=== PATIENT | female | born 1970 | race African-American/Black ===

== ENCOUNTER 2016-04-17 22:35 | Inpatient (IN) | payer BC ==
[~2016-04-17] VITALS: Ht 157.5 cm; Wt 77.1 kg
[2016-04-17] MEDS ORDERED: NKM (22:57)
[2016-04-17 23:15] VITALS: BP 158/89
[2016-04-17] MEDS ORDERED: Morphine Sulfate 4mg/ml Inj IVP ONE (23:30)
[2016-04-18] VITALS (8 sets, daily range): BP systolic 117–150; BP diastolic 62–87
--- NOTE | 2016-04-18 00:38 | Emergency Room Report ---
History of Present Illness General Chief Complaint: Chest Pain Source: Patient Present Illness HPI Patient presents essentially complaining mainly of the left arm pain and tingling Ongoing for the past 2 days Patient felt a sharp pain just below shoulder area on the left arm Radiation down into the hand Denies any fall or trauma Denies any neck pain Doesn't associate exertion or position with the discomfort Rates the pain as 3/10 Patient felt that she had some upper chest discomfort when his symptoms came on Denies any recent travel she also reports that while she was here checking in she developed a mild headache fairly diffuse Allergies: Coded Allergies: No Known Allergies (Unverified , 04/17/16) Patient History Past Medical History: see triage record Pertinent Family History: none Last Menstrual Period: 04/03/16 Now: No Reviewed Nursing Documentation: PMH: Agreed, PSxH: Agreed Nursing Documentation-PMH Past Medical History: No History, Except For Review of Systems All Other Systems: negative except mentioned in HPI Physical Exam Vital Signs Date Time Temp Pulse Resp B/P Pulse Ox O2 Delivery O2 Flow Rate FiO2 04/17/16 22:51 98.2 80 16 162/90 98 Room Air Sp02 EP Interpretation: reviewed, normal General Appearance: well appearing, no apparent distress Head: normocephalic, atraumatic Eyes: bilateral eye EOMI, bilateral eye PERRL ENT: hearing grossly normal, normal pharynx, TMs + canals normal, uvula midline Neck: full range of motion, supple, no meningismus, no bony tend Respiratory: lungs clear, normal breath sounds, no rhonchi, no respiratory distress, no retraction, no accessory muscle use Cardiovascular #1: normal peripheral pulses, regular rate, rhythm, no edema, no gallop, no JVD, no murmur Gastrointestinal: normal bowel sounds, non tender, soft, no mass, no organomegaly, non-distended, no guarding, no hernia, no pulsatile mass, no rebound Genitourinary: no CVA tenderness Musculoskeletal: normal inspection - No obvious swelling to the left upper arm , neurovascularly intact good pulses distally approximately, the hand feels appropriate Neurologic: oriented x3, responsive, fws faculty assistant III-XII nml as tested, motor strength/ tone normal, sensory intact Psychiatric: mood/affect normal Skin: normal color, no rash, warm/dry, palpation normal Lymphatic: normal inspection, no adenopathy Medical Decision Making Diagnostic Impression: Primary Impression: ACS (acute coronary syndrome) Additional Impression: Lung nodule ER Course Patient is a fairly complex patient with multiple differential to consideration including but not limited to cardiac cardiopulmonary and vascular emergencies Patient's d-dimer did come back elevated Patient required CT chest for rule out of pulmonary embolism Given the chest pain and some any shortness of breath that she complained about afterwards Patient has done better throughout her stay was also given Lovenox prior to further workup And admitted for further care Labs Test 04/18/16 01:20 04/18/16 03:45 White Blood Count 7.4 K/UL (4.8-10.8) Red Blood Count 4.41 M/UL (4.20-5.40) Hemoglobin 8.0 G/DL (12.0-16.0) Hematocrit 28.7 % (37.0-47.0) Mean Corpuscular Volume 65 FL (80-99) Mean Corpuscular Hemoglobin 18.1 PG (27.0-31.0) Mean Corpuscular Hemoglobin Concent 27.9 G/DL (32.0-36.0) Red Cell Distribution Width 17.9 % (11.6-14.8) Platelet Count 398 K/UL (150-450) Mean Platelet Volume 7.0 FL (6.5-10.1) Neutrophils (%) (Auto) 53.6 % (45.0-75.0) Lymphocytes (%) (Auto) 36.0 % (20.0-45.0) Monocytes (%) (Auto) 6.3 % (1.0-10.0) Eosinophils (%) (Auto) 2.8 % (0.0-3.0) Basophils (%) (Auto) 1.4 % (0.0-2.0) D-Dimer 898 ng/mL (<500) Sodium Level 141 mEQ/L (135-145) Potassium Level 3.5 mEQ/L (3.4-4.9) Chloride Level 103 mEQ/L (98-107) Carbon Dioxide Level 22 mEQ/L (20-30) Anion Gap 16 (5-15) Blood Urea Nitrogen 10 mg/dL (7-23) Creatinine 0.7 mg/dL (0.5-0.9) Estimat Glomerular Filtration Rate > 60 mL/min (>60) Glucose Level 105 mg/dL (74-106) Calcium Level 8.9 mg/dL (8.6-10.2) Total Bilirubin < 0.2 mg/dL (0.0-1.2) Aspartate Amino Transf (AST/SGOT) 17 U/L (5-40) Alanine Aminotransferase (ALT/SGPT) 12 U/L (3-33) Alkaline Phosphatase 62 U/L (35-104) Total Creatine Kinase 66 U/L (26-140) Creatine Kinase MB < 1.5 ng/mL (< 3.8) Creatine Kinase MB Relative Index Troponin I < 0.30 ng/mL (<=0.30) Pro-B-Type Natriuretic Peptide 34 pg/mL (0-125) Total Protein 7.4 g/dL (6.6-8.7) Albumin 4.1 g/dL (3.5-5.2) Globulin 3.3 g/dL Albumin/Globulin Ratio 1.2 (1.0-2.7) Prothrombin Time 10.1 SEC (9.30-11.50) Prothromb Time International Ratio 1.0 (0.9-1.1) Activated Partial Thromboplast Time 24 SEC (23-33) EKG Diagnostic Results Rate: normal Rhythm: NSR ST Segments: no acute changes Rhythm Strip Diag. Results EP Interpretation: yes Rate: 77 Rhythm: NSR, no PVC's, no ectopy Chest X-Ray Diagnostic Results EP Interpretation: Yes Findings: no consolidation, no effusion, no pneumothorax Number of Views: 1 CT/MRI/US Diagnostic Results CT/MRI/US Diagnostic Results : Impression CT chest:No evidence of pulmonary embolism there is a 5 mm left lower lobe followup recommended by radiology Last Vital Signs Date Time Temp Pulse Resp B/P Pulse Ox O2 Delivery O2 Flow Rate FiO2 04/17/16 22:51 98.2 80 16 162/90 98 Room Air Status: improved Disposition: ADMITTED INPATIENT Condition: Serious LAYLA PERAZA D.O. Apr 18, 2016 00:38
[2016-04-18] MEDS ORDERED: Morphine Sulfate 4mg/ml Inj IM ONE (01:15)
[2016-04-18 01:50] LABS: BASOPHILS % (AUTO) 1.4 % (0.0-2.0); EOSINOPHILS % (AUTO) 2.8 % (0.0-3.0); MEAN CORPUSCULAR HEMOGLOBIN 18.1 PG (27.0-31.0); MEAN CORPUSCULAR HGB CONC 27.9 G/DL (32.0-36.0); MEAN CORPUSCULAR VOLUME 65 FL (80-99); MONOCYTES % (AUTO) 6.3 % (1.0-10.0); NEUTROPHILS % (AUTO) 53.6 % (45.0-75.0); PLATELET COUNT 398 K/UL (150-450); RED BLOOD COUNT 4.41 M/UL (4.20-5.40); RED CELL DISTRIBUTION WIDTH 17.9 % (11.6-14.8); WHITE BLOOD COUNT 7.4 K/UL (4.8-10.8)
[2016-04-18 02:06] LABS: TROPONIN I < 0.30 ng/mL (<=0.30)
[2016-04-18 02:10] LABS: ALANINE AMINOTRANSFERASE 12 U/L (3-33); ALBUMIN/GLOBULIN RATIO 1.2 (1.0-2.7); ANION GAP 16 (5-15); ASPARTATE AMINO TRANSFERASE 17 U/L (5-40); CALCIUM 8.9 mg/dL (8.6-10.2); CARBON DIOXIDE 22 mEQ/L (20-30); CHLORIDE 103 mEQ/L (98-107); CREATININE 0.7 mg/dL (0.5-0.9); GLOMERULAR FILTRATION RATE > 60 mL/min (>60); HEMOLYSIS 11; POTASSIUM 3.5 mEQ/L (3.4-4.9); SODIUM 141 mEQ/L (135-145); TOTAL PROTEIN 7.4 g/dL (6.6-8.7)
[2016-04-18 02:20] LABS: CKMB < 1.5 ng/mL (< 3.8)
[2016-04-18] MEDS ORDERED: Enoxaparin 80mg Inj SUBQ SCH (02:30)
[2016-04-18 04:08] LABS: PROTHROMBIN TIME 10.1 SEC (9.30-11.50)
[2016-04-18] MEDS ORDERED: Morphine Sulfate 2mg/ml Inj IVP PRN (06:45)
[2016-04-18] MEDS ORDERED: DuoNeb 0.5-3(2.5)mg/3ml neb HHN PRN (06:45)
[2016-04-18] MEDS ORDERED: Miralax 17gm pkt ORAL PRN (06:45)
[2016-04-18] MEDS ORDERED: Enalaprilat 2.5mg/2ml Inj IV PRN (06:45)
[2016-04-18] MEDS ORDERED: Nitroglycerin Subl 0.4mg tab (Bottle Of 25) SL PRN (06:45)
[2016-04-18] MEDS ORDERED: Diltiazem 25mg/5ml IV PRN (06:45)
[2016-04-18] MEDS ORDERED: Ketorolac 30mg Inj IV PRN (06:45)
--- NOTE | 2016-04-18 08:42 | Cardiology Progress Note ---
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 [id number] Objective Last 24 Hour Vital Signs Date Time Temp Pulse Resp B/P Pulse Ox O2 Delivery O2 Flow Rate FiO2 04/18/16 07:47 97.7 62 18 120/73 99 Room Air 04/18/16 05:37 98.4 89 16 125/78 98 Room Air 04/18/16 05:30 98.4 89 16 125/78 98 Room Air 04/18/16 04:00 98.0 82 16 128/76 100 Room Air 04/18/16 02:48 98.3 04/18/16 02:30 97.8 81 16 139/81 99 Room Air 04/18/16 01:30 98.0 80 14 145/79 99 Room Air 04/18/16 00:30 98.0 78 16 150/85 100 Room Air 04/17/16 23:15 98.5 82 16 158/89 100 Room Air 04/17/16 23:15 82 14 Room Air 04/17/16 22:51 98.2 80 16 162/90 98 Room Air Intake and Output 04/17/16 04/18/16 19:00 07:00 Intake Total 500 ml Balance 500 ml IV Total 500 ml # Voids 2 Laboratory Tests Test 04/18/16 01:20 04/18/16 03:45 White Blood Count 7.4 K/UL (4.8-10.8) Red Blood Count 4.41 M/UL (4.20-5.40) Hemoglobin 8.0 G/DL (12.0-16.0) L Hematocrit 28.7 % (37.0-47.0) L Mean Corpuscular Volume 65 FL (80-99) L Mean Corpuscular Hemoglobin 18.1 PG (27.0-31.0) L Mean Corpuscular Hemoglobin Concent 27.9 G/DL (32.0-36.0) L Red Cell Distribution Width 17.9 % (11.6-14.8) H Platelet Count 398 K/UL (150-450) Mean Platelet Volume 7.0 FL (6.5-10.1) Neutrophils (%) (Auto) 53.6 % (45.0-75.0) Lymphocytes (%) (Auto) 36.0 % (20.0-45.0) Monocytes (%) (Auto) 6.3 % (1.0-10.0) Eosinophils (%) (Auto) 2.8 % (0.0-3.0) Basophils (%) (Auto) 1.4 % (0.0-2.0) D-Dimer 898 ng/mL (<500) H Sodium Level 141 mEQ/L (135-145) Potassium Level 3.5 mEQ/L (3.4-4.9) Chloride Level 103 mEQ/L (98-107) Carbon Dioxide Level 22 mEQ/L (20-30) Anion Gap 16 (5-15) H Blood Urea Nitrogen 10 mg/dL (7-23) Creatinine 0.7 mg/dL (0.5-0.9) Estimat Glomerular Filtration Rate > 60 mL/min (>60) Glucose Level 105 mg/dL (74-106) Calcium Level 8.9 mg/dL (8.6-10.2) Total Bilirubin < 0.2 mg/dL (0.0-1.2) Aspartate Amino Transf (AST/SGOT) 17 U/L (5-40) Alanine Aminotransferase (ALT/SGPT) 12 U/L (3-33) Alkaline Phosphatase 62 U/L (35-104) Total Creatine Kinase 66 U/L (26-140) Creatine Kinase MB < 1.5 ng/mL (< 3.8) Creatine Kinase MB Relative Index Troponin I < 0.30 ng/mL (<=0.30) Pro-B-Type Natriuretic Peptide 34 pg/mL (0-125) Total Protein 7.4 g/dL (6.6-8.7) Albumin 4.1 g/dL (3.5-5.2) Globulin 3.3 g/dL Albumin/Globulin Ratio 1.2 (1.0-2.7) Prothrombin Time 10.1 SEC (9.30-11.50) Prothromb Time International Ratio 1.0 (0.9-1.1) Activated Partial Thromboplast Time 24 SEC (23-33) NICO MACDONALD Apr 18, 2016 08:42
[2016-04-18] MEDS ORDERED: Aspirin Baby 81mg ORAL SCH (09:00)
[2016-04-18 09:38] LABS: PROTHROMBIN TIME 10.2 SEC (9.30-11.50)
--- NOTE | 2016-04-18 10:18 | Consultation ---
DATE OF CONSULTATION: 04/18/2016 CARDIOLOGY CONSULTATION: REFERRING PHYSICIAN: Milton Monzon M.D. REASON FOR REFERRAL: Left arm pain and chest pain. HISTORY OF PRESENT ILLNESS: This is a middle-aged female, who really has not had any significant medical problems. The patient presented to the hospital because of two days of intermittent pain in the left arm and subsequently constantly being present as of yesterday and she finally decided that she wanted to get that evaluated. She did have some tingling sensation in the left arm as well. she had a few minutes of pain in the left side of the lower chest rib area that lasted only a few minutes, but she has not had that pain or discomfort previously and nor has she had any more that pain since it resolved earlier after her drive her. She really does not have discomfort. There is no PND or orthopnea. She likes two to sleep with two to three pillows because of comfort night because of shortness of breath. There is no PND. She does notice that when she climbs upstairs that she gets some shortness of breath that has been the same for the past few months. Nothing new. She does not have any dizziness or lightheadedness on standing. No heart pounding or palpitations. PAST MEDICAL HISTORY: Negative for diabetes, negative for high blood pressure, negative for high cholesterol, negative for heart attack or cancer. No stroke or hepatitis. No tuberculosis. No asthma or emphysema. No ulcers. No kidney problems, liver problems, thyroid problems, anemia, or arthritis. She does have a history of ulcerative colitis, although she has not been treated for sometime. ALLERGIES: None. SOCIAL HISTORY: She does not smoke, does not drink alcoholic beverages, no drug use. REVIEW OF SYSTEMS: Gastrointestinal: She has had some blood bloody stools when she has a flare-up of her ulcerative colitis. Genitourinary: Negative. Pulmonary: Negative. Constitutional: Negative. Neurological system: Not mentioned in the history of present illness. There is no blurred vision or double vision. No spinning sensations or balance problems. No paralysis except for the tingling sensation and weakness and the pain in the left arm is otherwise unremarkable. PHYSICAL EXAMINATION: GENERAL: Shows to be middle-aged female, in no apparent respiratory distress. HEENT: Unremarkable. NECK: Supple. No jugular venous distention. No abdominojugular reflux noted. LUNGS: Clear to auscultation and percussion. CARDIAC: Regular rate and rhythm. No heaves. No thrills. No gallops. No rubs are noted. ABDOMEN: Soft and nontender. Positive bowel sounds. EXTREMITIES: No edema. She has a good pulses with the left upper extremity. LABORATORY VALUES AND DIAGNOSTIC DATA: Sodium 141, potassium 3.5, chloride 103, bicarbonate 22, BUN of 10, creatinine 0.7, and glucose of 105. Liver function tests appeared to be normal. Her troponin less than 0.3. ProBNP is only 34. Coags, INR of 1 and PTT of 24, and a D-dimer of 898. Her chest x-ray looks fairly unremarkable and I do not see any infiltrates or EKG basically shows sinus rhythm, rate of 67, no ST or T wave abnormalities. ASSESSMENT: 1. Left arm pain. 2. An episode of chest pain for a very short period of time. 3. History of ulcerative colitis. PLAN: Dr. Monzon, this patient was seen in cardiac consultation. The pain that she lasted two minutes according to herself. There was some tenderness in the chest wall area, which she experienced some pain last night, but the main issue has not been the pain in fact that her main issues are left arm weakness and pain and not the chest. She will have a series of tests including EKGs and serial enzymes, although I suspect this may be negative. I suspect that she may have to have some evaluation of her left arm pain further may be likely further imaging and she does have elevated D-dimer. She will have a venous duplex study of her upper extremity as well as lower extremities. Further recommendation depending on her double finding. Claudio Crenshaw M.D. DR: HEIDI JOB#: [id number] CC:
[2016-04-18 10:27] LABS: ERYTHROCYTE SEDIMENTATION RATE 61 MM/HR (0-20)
[2016-04-18 10:31] LABS: TROPONIN I < 0.30 ng/mL (<=0.30)
[2016-04-18] MEDS ORDERED: Heparin 5000 units/ml inj SUBQ SCH (11:00)
--- NOTE | 2016-04-18 11:04 | Diagnostic Imaging Report ---
Indication: Chest pain Technique: Single portable AP view of the chest. Findings: Comparison: None. The bones and extra pulmonary soft tissues, cardiomediastinal silhouette, pulmonary vasculature and parenchyma, and pleural surfaces are unremarkable. IMPRESSION: Negative portable AP chest.
[2016-04-18 11:06] LABS: ANISOCYTOSIS 1+; BAND NEUTROPHILS % (MANUAL) 0 % (0-8); BASOPHILS % (MANUAL) 0 % (0-2); EOSINOPHILS % (MANUAL) 2 % (0-3); HYPOCHROMASIA 1+; LYMPHOCYTES % (MANUAL) 37 % (20-45); MICROCYTES 2+; NEUTROPHILS % (MANUAL) 52 % (45-75); PLATELET ESTIMATE ADEQUATE; PLATELET MORPHOLOGY NORMAL; TOTAL CELLS COUNTED 100
[2016-04-18 11:08] LABS: POLYCHROMASIA OCCASIONAL
[2016-04-18 11:19] LABS: PATH BLOOD SMEAR/OMC SENT TO PATHOLOGIST
[2016-04-18 12:07] LABS: RETICULOCYTE COUNT 0.8 % (0.0-2.0)
--- NOTE | 2016-04-18 13:01 | History and Physical ---
History of Present Illness General Date patient seen: Apr 18, 2016 Reason for Hospitalization: Chest Pain Present Illness HPI 45 year old female without any PMHx presented complaining mainly of the left arm pain and tingling Ongoing for the past 2 days . She felt a sharp pain just below shoulder area on the left arm Radiation down into the hand. Denies any fall or trauma Denies any neck pain, She also felt that she had some upper chest discomfort. Allergies: Coded Allergies: No Known Allergies (Unverified , 04/17/16) Medication History Scheduled No Known Medications* (NKM - No Known Medications*), 0 ., (Reported) Patient History Healthcare decision maker Resuscitation status Full Code Advanced Directive on File Past Medical/Surgical History Past Medical/Surgical History: (1) Ulcerative colitis Review of Systems All Other Systems: negative except mentioned in HPI Physical Exam General Appearance: WD/WN Lines, tubes and drains: peripheral HEENT: normocephalic, atraumatic Neck: non-tender, normal alignment Respiratory/Chest: chest wall non-tender, lungs clear Cardiovascular/Chest: normal peripheral pulses, normal rate Abdomen: normal bowel sounds Genitourinary/Rectal: normal genital exam Extremities: normal range of motion Last 24 Hour Vital Signs Date Time Temp Pulse Resp B/P Pulse Ox O2 Delivery O2 Flow Rate FiO2 04/18/16 11:21 96.8 61 18 117/62 100 Room Air 04/18/16 08:00 72 04/18/16 07:47 97.7 62 18 120/73 99 Room Air 04/18/16 05:37 98.4 89 16 125/78 98 Room Air 04/18/16 05:30 98.4 89 16 125/78 98 Room Air 04/18/16 04:00 98.0 82 16 128/76 100 Room Air 04/18/16 02:48 98.3 04/18/16 02:30 97.8 81 16 139/81 99 Room Air 04/18/16 01:30 98.0 80 14 145/79 99 Room Air 04/18/16 00:30 98.0 78 16 150/85 100 Room Air 04/17/16 23:15 98.5 82 16 158/89 100 Room Air 04/17/16 23:15 82 14 Room Air 04/17/16 22:51 98.2 80 16 162/90 98 Room Air Intake and Output 04/17/16 04/18/16 19:00 07:00 Intake Total 500 ml Balance 500 ml IV Total 500 ml # Voids 2 Laboratory Tests Test 04/18/16 01:20 04/18/16 03:45 04/18/16 08:35 White Blood Count 7.4 K/UL (4.8-10.8) Red Blood Count 4.41 M/UL (4.20-5.40) Hemoglobin 8.0 G/DL (12.0-16.0) L Hematocrit 28.7 % (37.0-47.0) L Mean Corpuscular Volume 65 FL (80-99) L Mean Corpuscular Hemoglobin 18.1 PG (27.0-31.0) L Mean Corpuscular Hemoglobin Concent 27.9 G/DL (32.0-36.0) L Red Cell Distribution Width 17.9 % (11.6-14.8) H Platelet Count 398 K/UL (150-450) Mean Platelet Volume 7.0 FL (6.5-10.1) Neutrophils (%) (Auto) 53.6 % (45.0-75.0) Lymphocytes (%) (Auto) 36.0 % (20.0-45.0) Monocytes (%) (Auto) 6.3 % (1.0-10.0) Eosinophils (%) (Auto) 2.8 % (0.0-3.0) Basophils (%) (Auto) 1.4 % (0.0-2.0) Differential Total Cells Counted 100 Neutrophils % (Manual) 52 % (45-75) Lymphocytes % (Manual) 37 % (20-45) Monocytes % (Manual) 9 % (1-10) Eosinophils % (Manual) 2 % (0-3) Basophils % (Manual) 0 % (0-2) Band Neutrophils 0 % (0-8) Platelet Estimate Adequate Platelet Morphology Normal Polychromasia Occasional Hypochromasia 1+ Anisocytosis 1+ Microcytosis 2+ D-Dimer 898 ng/mL (<500) H Sodium Level 141 mEQ/L (135-145) Potassium Level 3.5 mEQ/L (3.4-4.9) Chloride Level 103 mEQ/L (98-107) Carbon Dioxide Level 22 mEQ/L (20-30) Anion Gap 16 (5-15) H Blood Urea Nitrogen 10 mg/dL (7-23) Creatinine 0.7 mg/dL (0.5-0.9) Estimat Glomerular Filtration Rate > 60 mL/min (>60) Glucose Level 105 mg/dL (74-106) Calcium Level 8.9 mg/dL (8.6-10.2) Total Bilirubin < 0.2 mg/dL (0.0-1.2) Aspartate Amino Transf (AST/SGOT) 17 U/L (5-40) Alanine Aminotransferase (ALT/SGPT) 12 U/L (3-33) Alkaline Phosphatase 62 U/L (35-104) Total Creatine Kinase 66 U/L (26-140) Creatine Kinase MB < 1.5 ng/mL (< 3.8) Creatine Kinase MB Relative Index Troponin I < 0.30 ng/mL (<=0.30) < 0.30 ng/mL (<=0.30) Pro-B-Type Natriuretic Peptide 34 pg/mL (0-125) Total Protein 7.4 g/dL (6.6-8.7) Albumin 4.1 g/dL (3.5-5.2) Globulin 3.3 g/dL Albumin/Globulin Ratio 1.2 (1.0-2.7) Prothrombin Time 10.1 SEC (9.30-11.50) 10.2 SEC (9.30-11.50) Prothromb Time International Ratio 1.0 (0.9-1.1) 1.0 (0.9-1.1) Activated Partial Thromboplast Time 24 SEC (23-33) 32 SEC (23-33) Erythrocyte Sedimentation Rate 61 MM/HR (0-20) H Reticulocyte Count 0.8 % (0.0-2.0) Iron Level 16 ug/dL (37-145) L Total Iron Binding Capacity 368 ug/dL (250-400) Percent Iron Saturation 4 % (15-50) L Unsaturated Iron Binding 352 ug/dL (112-346) H Lactate Dehydrogenase 201 U/L (135-230) Carcinoembryonic Antigen 1.1 ng/mL Vitamin B12 Level 372 pg/mL (211-946) Folate Pending Height (Feet): 5 Height (Inches): 2.00 Weight (Pounds): 170 Medications Current Medications Medications (Trade) Dose Ordered Sig/[place] Route PRN Reason Start Time Stop Time Status Last Admin Dose Admin Acetaminophen (Tylenol) 650 mg Q4H PRN ORAL FEVER 04/18/16 06:45 05/18/16 06:44 Albuterol/ Ipratropium (DuoNeb 0.5-3(2.5)mg/3ml) 3 ml Q4H PRN HHN Shortness of Breath 04/18/16 06:45 04/23/16 06:44 Aspirin (ASA) 162 mg DAILY ORAL 04/18/16 09:00 05/18/16 08:59 04/18/16 09:29 Diltiazem HCl (Cardizem) 10 mg Q1H PRN IV heart rate more than 120, 04/18/16 06:45 05/18/16 06:44 Enalaprilat (Vasotec) 2.5 mg Q6H PRN IV sbp more than 160 04/18/16 06:45 05/18/16 06:44 Heparin Sodium (Porcine) 5000 units 5,000 units EVERY 12 HOURS SUBQ 04/18/16 11:00 05/18/16 10:59 04/18/16 11:06 Iron Sucrose/ Sodium Chloride (Venofer/Sodium Chloride 100ml bag) 110 ml @ 210 mls/hr ONCE ONCE IVPB 04/18/16 21:00 04/18/16 21:31 Ketorolac Tromethamine (Toradol 30mg) 30 mg Q6H PRN IV moderate pain ( 4-6) 04/18/16 06:45 04/23/16 06:44 Morphine Sulfate (Morphine Sulfate) 2 mg Q4H PRN IVP severe Pain (Pain Scale 7-10) 04/18/16 06:45 04/25/16 06:44 Nitroglycerin (Ntg) 0.4 mg Q5M PRN SL Prn Chest Pain 04/18/16 06:45 05/18/16 06:44 Ondansetron HCl (Zofran) 4 mg Q6H PRN IVP Nausea & Vomiting 04/18/16 06:45 05/18/16 06:44 Pantoprazole (Protonix) 40 mg DAILY ORAL 04/18/16 09:00 05/18/16 08:59 04/18/16 09:29 Polyethylene Glycol (Miralax) 17 gm DAILYPRN PRN ORAL Constipation 04/18/16 06:45 05/18/16 06:44 Temazepam (Restoril) 15 mg HSPRN PRN ORAL Insomnia 04/18/16 06:45 04/25/16 06:44 Assessment/Plan Problem List: (1) ACS (acute coronary syndrome) ICD Codes: I24.9 - Acute ischemic heart disease, unspecified SNOMED: 688403567 (2) Left arm pain ICD Codes: M79.602 - Pain in left arm SNOMED: 158428608 Assessment/Plan serial EKG, troponin neuro/ cardio evaluation Motrin for pain Us of left arm ordered by SANDY Crain Apr 18, 2016 13:01
--- NOTE | 2016-04-18 14:04 | Neurology Progress Note ---
Objective Physical Exam Last Vital Signs Date Time Temp Pulse Resp B/P Pulse Ox O2 Delivery O2 Flow Rate FiO2 04/18/16 11:21 96.8 61 18 117/62 100 Room Air Laboratory Tests Test 04/18/16 01:20 04/18/16 03:45 04/18/16 08:35 White Blood Count 7.4 K/UL (4.8-10.8) Red Blood Count 4.41 M/UL (4.20-5.40) Hemoglobin 8.0 G/DL (12.0-16.0) L Hematocrit 28.7 % (37.0-47.0) L Mean Corpuscular Volume 65 FL (80-99) L Mean Corpuscular Hemoglobin 18.1 PG (27.0-31.0) L Mean Corpuscular Hemoglobin Concent 27.9 G/DL (32.0-36.0) L Red Cell Distribution Width 17.9 % (11.6-14.8) H Platelet Count 398 K/UL (150-450) Mean Platelet Volume 7.0 FL (6.5-10.1) Neutrophils (%) (Auto) 53.6 % (45.0-75.0) Lymphocytes (%) (Auto) 36.0 % (20.0-45.0) Monocytes (%) (Auto) 6.3 % (1.0-10.0) Eosinophils (%) (Auto) 2.8 % (0.0-3.0) Basophils (%) (Auto) 1.4 % (0.0-2.0) Differential Total Cells Counted 100 Neutrophils % (Manual) 52 % (45-75) Lymphocytes % (Manual) 37 % (20-45) Monocytes % (Manual) 9 % (1-10) Eosinophils % (Manual) 2 % (0-3) Basophils % (Manual) 0 % (0-2) Band Neutrophils 0 % (0-8) Platelet Estimate Adequate Platelet Morphology Normal Polychromasia Occasional Hypochromasia 1+ Anisocytosis 1+ Microcytosis 2+ D-Dimer 898 ng/mL (<500) H Sodium Level 141 mEQ/L (135-145) Potassium Level 3.5 mEQ/L (3.4-4.9) Chloride Level 103 mEQ/L (98-107) Carbon Dioxide Level 22 mEQ/L (20-30) Anion Gap 16 (5-15) H Blood Urea Nitrogen 10 mg/dL (7-23) Creatinine 0.7 mg/dL (0.5-0.9) Estimat Glomerular Filtration Rate > 60 mL/min (>60) Glucose Level 105 mg/dL (74-106) Calcium Level 8.9 mg/dL (8.6-10.2) Total Bilirubin < 0.2 mg/dL (0.0-1.2) Aspartate Amino Transf (AST/SGOT) 17 U/L (5-40) Alanine Aminotransferase (ALT/SGPT) 12 U/L (3-33) Alkaline Phosphatase 62 U/L (35-104) Total Creatine Kinase 66 U/L (26-140) Creatine Kinase MB < 1.5 ng/mL (< 3.8) Creatine Kinase MB Relative Index Troponin I < 0.30 ng/mL (<=0.30) < 0.30 ng/mL (<=0.30) Pro-B-Type Natriuretic Peptide 34 pg/mL (0-125) Total Protein 7.4 g/dL (6.6-8.7) Albumin 4.1 g/dL (3.5-5.2) Globulin 3.3 g/dL Albumin/Globulin Ratio 1.2 (1.0-2.7) Prothrombin Time 10.1 SEC (9.30-11.50) 10.2 SEC (9.30-11.50) Prothromb Time International Ratio 1.0 (0.9-1.1) 1.0 (0.9-1.1) Activated Partial Thromboplast Time 24 SEC (23-33) 32 SEC (23-33) Erythrocyte Sedimentation Rate 61 MM/HR (0-20) H Reticulocyte Count 0.8 % (0.0-2.0) Iron Level 16 ug/dL (37-145) L Total Iron Binding Capacity 368 ug/dL (250-400) Percent Iron Saturation 4 % (15-50) L Unsaturated Iron Binding 352 ug/dL (112-346) H Lactate Dehydrogenase 201 U/L (135-230) Carcinoembryonic Antigen 1.1 ng/mL Vitamin B12 Level 372 pg/mL (211-946) Folate Pending Impression/Recommendations Problems: (1) r/o cervical radiculopathy r/ collagen vasc disease (2) Left arm pain (3) Ulcerative colitis (4) Lung nodule Status: unchanged Recommendations #[id number] MIKE COLEMAN Apr 18, 2016 14:04
--- NOTE | 2016-04-18 17:39 | Cardiology Report ---
APPROVED REPORT EKG Measurement Heart [id number] Normal sinus rhythm Normal ECG
--- NOTE | 2016-04-18 19:38 | Consultation ---
DATE OF CONSULTATION: 04/18/2016 NEUROLOGICAL CONSULTATION REQUESTING PHYSICIAN: Milton Monzon M.D. HISTORY OF PRESENT ILLNESS: This is a 45-year-old female, seen in neurological consultation to evaluate new onset of intractable left upper extremity pain. The patient informed me that she was doing fairly well until about two days ago, woke up in the morning feeling severe pain, numbness, and tingling from shoulder down to the left hand. Pain is constant and is persistent with any position. In addition, she developed mild headaches. She arrived to the hospital. Her blood pressure was 162/90 and temperature 98.2 degrees. There was no deformities noted. The patient was suspected to have acute coronary syndrome and lung nodule. The patient's imaging studies included x-ray of the chest, which was negative. The patient denies any discomfort in her right upper and both lower extremities. The patient's laboratory work included a CBC study with hemoglobin 8.2, hematocrit 28.7, low MCV, MCH, and sedimentation rate of 61. Coagulation panel, unremarkable, but D-dimer elevated at 898. Chemistry panel, normal except anion gap of 16 with normal B12, CEA and troponins. Following admission until present, there is some improvement noted. The patient's treatment included aspirin, Cardizem, Vasotec, Lovenox, Toradol, p.r.n. morphine, nitroglycerin, Zofran, Protonix and Restoril. PAST MEDICAL HISTORY: The patient has a history of ulcerative colitis, last treatment was six months ago. MEDICATIONS: Prior to admission was not taking any medications. ALLERGIES: None reported. 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 No alcohol. No drug abuse. FAMILY HISTORY: Noncontributory. REVIEW OF SYSTEMS: Mild diffuse headaches. Numbness, tingling and pain in her left upper extremity diffusely. Denies chest pain or palpitations. No respiratory problems. Denies abdominal pain or discomfort. No urine or bowel incontinence. PHYSICAL EXAMINATION: GENERAL: The patient is a well-developed and well-nourished female, not in acute distress. MUSCULOSKELETAL: Remarkable for palpable tenderness in the left arm diffusely. Negative Tinel sign. No palpable tenderness in the cervical region. No deformities. Peripheral pulses 1+ symmetric. MENTAL STATUS: The patient is alert and oriented x3. Speech is fluent. No evidence of aphasia or apraxia. Cognitive function normal. CRANIAL NERVE II: Pupils both responding to light and accommodation. Extraocular movement intact. No nystagmus. CRANIAL NERVE V: Normal corneal responses. CRANIAL NERVE VII: No facial asymmetry. CRANIAL NERVE VIII: Normal hearing. CRANIAL NERVE IX THROUGH XII: Tongue is in midline. Symmetric palate elevation. MOTOR EXAMINATION: Normal muscle tone. Strength 5/5 in all extremities. No involuntary movement. Deep reflexes 1+ symmetric with downgoing toes on both sides. SENSORY EXAMINATION: Normal to pinprick light touch. Gait is stable. IMPRESSION: 1. New onset of severe left upper extremity neuropathic pain, rule out cervical radiculopathy, rule out a brachial plexalgia. 2. Elevated sedimentation rate, rule out collagen vascular disease. 3. Hypertension. 4. History of ulcerative colitis. RECOMMENDATION: 1. MAGDALENA, repeat sedimentation rate, CRP, serum electrophoresis, B12, and folate. 2. MRI of cervical spine. 3. Start on steroids, prednisone 60 mg taper off over 5-6 days. 4. Tylenol for back pain control. Thank you for allowing me to see this interesting patient in neurological consultation. Galileo Chen M.D. DR: JACLYN JOB#: [id number] CC:
--- NOTE | 2016-04-19 13:36 | Discharge Summary ---
Discharge Summary Hospital Course Date of Admission Apr 18, 2016 at 03:07 Date of Discharge Apr 18, 2016 at 18:58 Admitting Diagnosis ACS HPI Teresa Corley is a 45 year old female who was admitted on Apr 18, 2016 at 03:07 for Acute Coronary Syndrome Hospital Course dc summary dictated #[id number] Discharge Condition Upon Discharge: stable Discharge Disposition Patient was discharged to Home (01) Discharge Diagnoses: Zack ([place])Krista NP Apr 19, 2016 13:36
--- NOTE | 2016-04-20 05:07 | Discharge Summary 2 SIG ---
DATE OF ADMISSION: 04/18/2016 DATE OF DISCHARGE: 04/18/2016 REASON FOR HOSPITALIZATION: 45 years old female, presented to the emergency department, complaining of the left arm pain and tingling, which was going for the two days. The patient also felt a sharp pain just below the shoulder, pain on the left arm with radiation down to her hand. She denied fall and trauma. She denied any neck pain. No headache. No dizziness. Left arm pain was not associated with exertion or position change. Rates the pain as a 3/10 on a scale of 1 to 10. She denied recent travel. HOAPITAL COURSE: The patient admitted to the telemetry floor. Troponin was negative. D-dimer was elevated to 898. No shortness of breath, no tachycardia, and no tachypnea. Cardiology consult and Neurology consult were requested. Per Cardiology, chest pain is atypical, very brief episode lasting two minutes x1. EKG showed normal sinus rhythm. Chest pain reproducible with tenderness on palpation, therefore seed sorter concluded no further followup required. Chest pain likely atypical versus secondary to costochondritis and recommended further Neurology evaluation. He recommended venous duplex of bilateral lower extremities and bilateral upper extremities due to the elevated D-dimer, however, the patient declined any further testing. She clinically had no evidence of DVT. She was clinically asymptomatic and no tachypnea, no tachycardia, no shortness of breath, and no cough. Neurology consult was requested as well. Neurologist recommended rule out cervical radiculopathy versus brachial plexalgia. He recommended MRI of the cervical spine due to the elevated ESR, he recommended rule out for collagen vascular disease and MAGDALENA panel was ordered along with a B12 and folate, which were within normal limits. Neurologist recommended to start the patient on the steroids, prednisone 60 mg and taper over 5 to 6 day and Tylenol for back pain. Neurologist also recommended workup for collagen vascular disease including MAGDALENA, sedimentation rate, repeat sedimentation rate, CRPs, serum protein electrophoresis, B12, and folate. Of note, the patient has a history of ulcerative colitis and anemia. The patient's symptoms subsided and she decided that she wants to go home and have outpatient workup. She talked with Dr. Monzon and wants to follow up with neurologist as outpatient. Troponin x2 were negative. No chest pain, no shortness of breath. Vital sign stable. The patient has a primary medical doctor that she follows and she will follow up with neurologist. Due to the rapid and unexpected improvement in the patient's clinical condition , the patient was discharged the same day. DISCHARGE DIAGNOSES: 1. New onset left upper extremity pain, neuropathic pain. Rule out cervical radiculopathy, rule out brachial plexalgia. 2. Atypical chest pain, likely secondary to costochondritis with a very brief episode x1. 3. Anemia of chronic disease. 4. Elevated sedimentation rate, rule out collagen vascular disease. 5. History of ulcerative colitis. 6. Elevated D-dimer. DISCHARGE MEDICATIONS: None. DISCHARGE INSTRUCTIONS: The patient was discharged home. The patient will be followed with neurologist this week. The patient will also follow up with the primary medical doctor. The patient will do MRI of the C-spine as outpatient and based on results of the MRI, it will be decided by neurologist if she needs a short course of steroids. Patient may need extensive workup as outpatient as determined by neurologist after imaging. Pain management as Tylenol or NSAIDs over the counter. Otherwise, the patient was instructed to go back to the emergency room if she develops shortness of breath, chest pain, fast heart rate, difficulty breathing, or cough. The patient understand discharge instructions. The patient was stable for discharge. Milton Monzon M.D. I have been assigned to dictate discharge summary on this account and I was not involved in the patient's management. Krista [facility] DR: TRACI JOB#: [id number] CC: KAMILA
[2016-04-20 09:35] LABS: FOLIC ACID 8.3 ng/mL (3.1-17.5)
--- NOTE | 2016-04-25 14:52 | Diagnostic Imaging Report ---
APPROVED REPORT CPT Code: 43885 Present Symptoms Upper Extremity Pain: Left LEFT UPPER EXTREMITY: Venous imaging reveals patency of the internal jugular, subclavian, axillary and brachial veins. The cephalic and proximal basilic veins are also patent. Doppler indicates normal spontaneous flow within these venous segments. The distal basilic vein was not well visualized. There is no evidence of acute deep vein thrombosis.
--- NOTE | 2016-04-25 14:55 | Diagnostic Imaging Report ---
Indication: Neck pain. Technique: Continuous helical imaging of the cervical spine was obtained transaxially from the skull base to the upper thoracic spine. 2-D coronal and sagittal reformatted images were obtained. Total Dose length Product (DLP): [address] Dose Index Volume (CTDIvol): 19 mGy Comparison: None Findings: There is loss of cervical lordosis. Alignment is otherwise normal. The height and configuration of the intervertebral discs and vertebral bodies are within normal limits. There is no fracture identified. Soft tissues are unremarkable. There is no central or neural foraminal stenosis identified. Impression: Loss of cervical lordosis which may be due to muscle spasm. The exam is negative otherwise The CT scanner at [facility] is accredited by the [employer] and the scans are performed using protocols designed to limit radiation exposure to as low as reasonably achievable to attain images of sufficient resolution adequate for diagnostic evaluation.
--- NOTE | 2016-04-25 14:57 | Diagnostic Imaging Report ---
Indications: Chest pain Technique: Continuous helical CT imaging of the thorax was performed with automatic exposure control, following bolus intravenous administration of nonionic iodine contrast, on a Siemens sensation [address] scanner. Axial images reconstructed at 3 mm slice thickness and 1.5 mm interval. Coronal and sagittal images were reconstructed at 3 mm slice thickness. Coronal and sagittal two-dimensional maximum intensity projection and three-dimensional volume-rendered images were reconstructed on a stand alone workstation. CTDI volume(s): 13x2, 22 mGy Total DLP: 718 mGy-cm Eyes: Comparison: None The main pulmonary artery, right and left pulmonary arteries, and pulmonary artery branches to the level of third order branching are patent and well-opacified. No intraluminal filling defects are demonstrated. Thoracic aorta and great vessels are patent and well-opacified, normal in caliber and configuration. No evidence of aneurysm, dissection, or leak. Heart normal size. No pericardial abnormality. No mediastinal or hilar enlarged lymph nodes. Calcified nodule in right paratracheal region of the mediastinum. Small circumscribed lucencies scattered throughout both lungs. Small irregular pleural-based linear densities and dependent portions of both lung bases. 5 mm noncalcified pleural-based nodular density periphery of lateral basal segment left lower lobe. No pleural abnormality detected. Chest wall soft tissues nonfocal. 5 mm circumscribed low-attenuation focus in hepatic segment 4A, not further characterizable. Imaged upper abdominal anatomy unremarkable. No focal skeletal abnormality identified. IMPRESSION: No evidence of pulmonary embolism or other significant acute thoracic pathology Bilateral pulmonary bullae/blebs Left lower lobe small nodule, nonspecific, most likely chronic inflammatory. Mediastinal calcified granuloma Pulmonary bibasal subsegmental atelectasis Nonspecific low-attenuation lesion left hepatic lobe. Consider ultrasound correlation. This correlates with [facility] preliminary report.
== END 2016-04-18 18:58 | disposition home or self-care (01) | DRG 206 ==
LOC: EMR 23:15 → 2E 04-18 03:07 → EDBEDREQ 04-18 03:36
DX: M94.0 Chondrocostal junction syndrome [Tietze] (principal); K51.90 Ulcerative colitis, unspecified, without complications; G54.0 Brachial plexus disorders; D63.8 Anemia in other chronic diseases classified elsewhere; M54.12 Radiculopathy, cervical region; R91.1 Solitary pulmonary nodule
CPT/HCPCS: 36415; 71010; 71275; 72125; 80053; 82378; 82550; 82553; 82607; 82746; 83540; 83550; 83615; 83880; 84484; 85007; 85025; 85044; 85060; 85379; 85610; 85651; 85730; 93005; 93306; 93971